=== PATIENT | male | born 1990 | race American Indian/Alaskan Native ===

== ENCOUNTER 2018-02-14 18:50 | Emergency (ER) | payer SELFPAY ==
[2018-02-14 21:06] LABS: BUN/Creatinine Ratio 10; Blood Urea Nitrogen 11 mg/dL (9-20); Calcium 9.9 mg/dL (8.4-10.2); Hemolysis Index 63
[2018-02-14 23:02] LABS: Basophils % (Auto) 0.7 % (0.0-1.8); Eosinophils # (Auto) 0.1 K/mm3 (0.0-0.4); Eosinophils % (Auto) 0.9 % (0.0-4.3); Hematocrit 49.3 % (35.5-45.6); Hemoglobin 17.1 gm/dl (11.8-15.2); Lymphocytes # (Auto) 2.1 K/mm3 (1.2-5.4); Lymphocytes % (Auto) 31.7 % (13.4-35.0); Mean Corpuscular HGB Conc 35 % (32-34); Mean Corpuscular Hemoglobin 31 pg (28-32); Mean Corpuscular Volume 89 fl (84-94); Monocytes # (Auto) 0.5 K/mm3 (0.0-0.8); Monocytes % (Auto) 6.9 % (0.0-7.3); Platelet Count 286 K/mm3 (140-440); Red Blood Count 5.52 M/mm3 (3.65-5.03); Red Cell Distribution Width 13.5 % (13.2-15.2)
[2018-02-15 03:09] LABS: Bilirubin,Urine NEG (Negative); Blood,Urine NEG (Negative); Color,Urine Yellow (Yellow); Mucus,Urine 1+ /HPF; Protein,Urine <15 mg/dL mg/dL (Negative)
--- NOTE | 2018-02-15 03:14 | Emergency Department Report ---
HPI - General Chief Complaint: Psych Time Seen by Provider: 02/15/18 02:34 - HPI HPI: 27-year-old Indonesian male presents to the emergency department after he was brought in by his significant other for a mental health evaluation. The patient himself is mostly nonverbal and barely will answer any questions. He appears to shake/nod his head in the affirmative when asked if he has a psychiatric history and he does the same and asked if he has any hallucinations. I spoke to his significant other, Ms. Schulz, who says that the patient has a history of bipolar disorder and schizophrenia and that he has been dealing with some acute psychosis. She says that even in the waiting room he seemed to think that one of the other patients waiting was G-d or some magical being. She says that he has been inpatient for psychiatric treatment at least one time in the past. He is not currently on any medications and when he was placed on them after his inpatient stay that they did not work for him. ED Past Medical Hx - Past Medical History Hx Psychiatric Treatment: Yes (Schizophrenia) - Surgical History Past Surgical History?: No - Social History Smoking Status: Current Every Day Smoker Substance Use Type: None, Marijuana ED Review of Systems ROS: Stated complaint: ALTERED MENTAL STATUS Other details as noted in HPI Comment: Unobtainable due to pts medical conditions Physical Exam - Physical Exam Vital Signs: Vital Signs 02/14/18 20:05 Temperature 99 F Pulse Rate 102 H Respiratory 16 Rate Blood Pressure 135/101 O2 Sat by Pulse 98 Oximetry Physical Exam: GENERAL: The patient is well-developed well-nourished. HENT: Normocephalic. Atraumatic. Patient has moist mucous membranes. EYES: Extraocular motions are intact. NECK: Supple. Trachea is midline. CHEST/LUNGS: Clear to auscultation. There is no respiratory distress noted. HEART/CARDIOVASCULAR: Regular. There is no tachycardia. There is no murmur. ABDOMEN: Abdomen is soft, nontender. Patient has normal bowel sounds. There is no abdominal distention. SKIN: Skin is warm and dry. NEURO: Patient is awake and able to give the year. He does not answer most of the questions asked and stares off unless redirected. MUSCULOSKELETAL: There is no tenderness or deformity. There is no limitation range of motion. There is no evidence of acute injury. PSYCH: Patient has a relatively flat affect. He is staring off unless he is asked a question and sometimes needs it asked multiple times or redirection. ED Course Vital Signs 02/14/18 20:05 Temperature 99 F Pulse Rate 102 H Respiratory 16 Rate Blood Pressure 135/101 O2 Sat by Pulse 98 Oximetry ED Medical Decision Making - Lab Data Result diagrams: 02/14/18 22:44 02/14/18 20:28 - Medical Decision Making The patient himself is a poor historian but does appear to be having some acute psychosis. His significant other gives more of a history of bipolar disorder and schizophrenia and says that he has been acting erratically over the past few weeks. She says that she has been witnessing some delusions and/or hallucinations. He is ambulatory throughout the emergency department and does not appear unstable. He is able to answer some questions appropriately like what year it is. He seems to have a pattern where he refuses things like giving blood, urine or changing into the green gown, but eventually he gives in. His labs are mostly unremarkable except for a urine drug screen positive for marijuana. His vital signs have been stable throughout his ED course. He was seen by the psych probate lawyer, Junito, who was not able to get much information from this patient but agrees that he appears to be displaying some signs of psychosis and is an appropriate candidate to be many 1013 for inpatient psychiatric treatment. The patient is medically cleared for psychiatric placement. - Differential Diagnosis bipolar disorder, schizophrenia, schizoaffective, substance abuse Critical Care Time: No Critical care attestation.: If time is entered above; I have spent that time in minutes in the direct care of this critically ill patient, excluding procedure time. ED Disposition Clinical Impression: Acute psychosis Disposition: DC/TX-65 PSY HOSP/PSY UNIT Is pt being admited?: No Condition: Stable Referrals: PRIMARY CAREMD [Primary Care Provider] - 3-5 Days Time of Disposition: 04:22
[2018-02-15 03:15] LABS: Amphetamine Screen,Urine PRESUMPTIVE NEGATIVE; Benzodiazepines Screen,Urine PRESUMPTIVE NEGATIVE; Cocaine Screen,Urine PRESUMPTIVE NEGATIVE; Methadone Screen,Urine PRESUMPTIVE NEGATIVE; Opiate Screen,Urine PRESUMPTIVE NEGATIVE
[2018-02-15 03:59] LABS: Cannabinoid Screen,Urine PRESUMPTIVE POSITIVE
[2018-02-15] MEDS ORDERED: GEODON IM ONE (04:57)
[2018-02-15] MEDS ORDERED: ATIVAN IV ONE (07:55)
[2018-02-15] MEDS ORDERED: HALDOL ONE (08:00)
[2018-02-15] MEDS ORDERED: ATIVAN ONE (08:00)
[2018-02-15] MEDS ORDERED: HALDOL IM ONE (08:12)
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
[2018-02-15 16:03] LABS: Alanine Aminotransferase 20 units/L (7-56); Lipase 18 units/L (13-60)
--- NOTE | 2018-02-16 17:30 | Progress Note ---
Subjective - Reason for Consult Consult date: 02/16/18 Reason for consult: Psychiatric Follow-up Evaluation - Chief Complaint Chief complaint: Patient is a 27-year-old male who presents to the emergency department after he was brought in by his significant other for a mental health evaluation. Today the patient is calm, but disorganized during the assessment. He continues to not be able to answer most questions during the assessment. His responses are delayed. He reports depression, anxiety, and psychosis. Patient verbalizes that he feels possessed. However, he presents very guarded/evasive. Patient endorses decrease energy, appetite, and sleep as well as intermittent suicidal ideations without a plan. He denies HI and VH. Mental Status Exam - Vital signs Last Vital Signs Temp 98.1 F 02/16/18 12:09 Pulse 78 02/16/18 12:09 Resp 18 02/16/18 12:09 BP 129/97 02/16/18 12:09 Pulse Ox 99 02/16/18 12:09 - Exam Narrative exam: Mental Status Exam: General Appearance: Causally Dressed-hospital gown Eye Contact: Intermittent Orientation: Alert and oriented x 2 ( person, place) Attitude/Behavior: Evasive, guarded Sensorium: Distracted Psychomotor & Musculoskeletal Activity: Standing Mood: Anxious Affect: Constricted Speech/Language: Delayed and slow Thought Processes: Thought blocking Thought Content: Impoverished. Paranoid " I feel possessed" Perception: Patient is internally preoccupied Concentration/Attention: Impaired. Suicidal Ideations/Plan: Patient denies. + suicidal ideations without a plan Homicidal Ideations/Plan: Patient denies. " No." Judgment: Poor Insight: Poor Assessment and Plan Impression: Unspecified Psychosis. Today the patient is calm, but disorganized during the assessment. He endorses suicidal ideations without a plan and psychosis. Thought blocking noted. He denies HI and VH. The patient is positive for marijuana. DDx: Bipolar DO with psychosis, R/O Schizophrenia, R/O Schizoaffective DO, R/O Substance Induced Psychosis Recommendation/Plan: 1. Continue 1013 with placement to inpatient psychiatric services. 2. Continue Depakote 500 mg PO BID for mood once his labs results and Seroquel 200 mg PO HS for psychosis/mood. Attempted to discuss possible metabolic side effects of Seroquel with patient. 3. Will continue to monitor psychosis, mood, sleep, appetite, compliance, and side effects.
--- NOTE | 2018-02-17 13:16 | Progress Note ---
Subjective - Reason for Consult Consult date: 02/17/18 Reason for consult: Psychiatry Follow-up - Chief Complaint Chief complaint: "I hope I get better" 27-year-old Kittitian male presents to the emergency department after he was brought in by his significant other for a mental health evaluation. Today the patient is calm and cooperative during the assessment. He stated that his head is still "spinning" from something he cannot explain. He continue to have delayed responses to questions when asked, possibly responding to some type of stimuli. He rate his depression 7/10, with 10 being the worse. He denies SI/HI' s and VH's. He would not confirm or deny AH's. He denies any side effects of his medications. Mental Status Exam - Vital signs Last Vital Signs Temp 98.1 F 02/17/18 10:00 Pulse 101 H 02/17/18 10:00 Resp 18 02/17/18 10:00 BP 104/65 02/17/18 10:00 Pulse Ox 99 02/17/18 10:00 - Exam Narrative exam: MSE: Appearance: calm Behavior: regular eye contact Speech: regular rate and tone Mood: "okay, but depressed" Affect: flat Thought Process: circumstantial Thought Content: denies SI/HI's and VH's, paranoia, he want confirm or deny AH' s Motor Activity: ambulatory Cognition: A//O x 3 Insight: variable Judgment: variable Assessment and Plan Impression: Unspecified Psychosis. Today the patient is calm and cooperative during the assessment. The patient is positive for marijuana. DDx: Bipolar DO with psychosis, R/O Schizophrenia, R/O Schizoaffective DO, R/O Substance Induced Psychosis Recommendation/Plan: Continue 1013 with placement to inpatient psy services. Continue Depakote 500 mg PO BID for mood and Seroquel 200 mg PO HS for psychosis /mood. Discussed possible metabolic side effects of Seroquel with patient.
[2018-02-17] MEDS ORDERED: ATIVAN ONE (20:46)
[2018-02-17] MEDS ORDERED: ATIVAN IM ONE (20:51)
--- NOTE | 2018-02-18 12:26 | Progress Note ---
Subjective - Reason for Consult Consult date: 02/18/18 Reason for consult: Psychiatry Follow-up - Chief Complaint Chief complaint: "Hello" 27-year-old Kenyan male presents to the emergency department after he was brought in by his significant other for a mental health evaluation. Today the patient is calm and cooperative during the assessment. He stated that his depression has gotten better. He was asked about AH's, his answer was delayed by saying, "A little better." He denies SI/HI's and VH's. No indications of side effects of his medications. Mental Status Exam - Vital signs Last Vital Signs Temp 97.8 F 02/18/18 02:08 Pulse 88 02/18/18 02:08 Resp 20 02/18/18 02:09 BP 130/75 02/18/18 02:08 Pulse Ox 100 02/18/18 02:09 - Exam Narrative exam: MSE: Appearance: calm, cooperative Behavior: regular eye contact Speech: regular rate and tone Mood: "okay" Affect: flat Thought Process: circumstantial Thought Content: denies SI/HI's and VH's, he want confirm or deny AH's Motor Activity: ambulatory Cognition: A//O x 3 Insight: variable Judgment: variable Assessment and Plan Impression: Unspecified Psychosis. Today the patient is calm and cooperative during the assessment. The patient is positive for marijuana. DDx: Bipolar DO with psychosis, R/O Schizophrenia, R/O Schizoaffective DO, R/O Substance Induced Psychosis Recommendation/Plan: Continue 1013 with placement to inpatient psy services. Continue Depakote 500 mg PO BID for mood and Seroquel 200 mg PO HS for psychosis /mood. Discussed possible metabolic side effects of Seroquel with patient.
[2018-02-18] MEDS ORDERED: WATER FOR INJ (PF) ONE ×2 (15:44→16:02)
[2018-02-18] MEDS ORDERED: GEODON IM ONE ×2 (15:44→16:35)
--- NOTE | 2018-02-18 16:19 | Emergency Department Report ---
Blank Doc - Documentation Documentation: Patient is psych patient here in the emergency department awaiting placement for suicidal ideations. Patient was noted on the camera to have otitis sheet around his neck and tried to look this up onto the bed in order to hang himself. Patient was stopped. Patient was given 20 of Geodon for medical restraint and the patient was placed in seclusion. [id number] by me was done.
--- NOTE | 2018-02-19 19:25 | Progress Note ---
Subjective - Reason for Consult Consult date: 02/19/18 Reason for consult: Psychiatric Follow-up Evaluation - Chief Complaint Chief complaint: " My mood is a 7" Patient is a 27-year-old male who presents to the emergency department after he was brought in by his significant other for a mental health evaluation. Today the patient is calm and cooperative during the assessment. He stated that his depression has gotten better. He reports good sleep and appetite. He denies SI/HI, A/VH, and delusions. He reports medication compliance. He denies side effects of medications. Mental Status Exam - Vital signs Last Vital Signs Temp 97.9 F 02/19/18 11:00 Pulse 90 02/19/18 11:00 Resp 18 02/19/18 11:00 BP 114/78 02/19/18 11:00 Pulse Ox 99 02/19/18 11:00 - Exam Narrative exam: Mental Status Exam: General Appearance: Causally Dressed-hospital gown Eye Contact: Intermittent Orientation: Alert and oriented x 4 ( person, place, time, and situation) Attitude/Behavior: Cooperative Sensorium: Clear Psychomotor & Musculoskeletal Activity: Laying in bed Mood: " my mood is a 7" Affect: Constricted, flat Speech/Language: Regular rate and tone Thought Processes: Circumstantial Thought Content: Impoverished. Patient denies delusions. Perception: Patient denies A/V/T hallucinations Concentration/Attention: Impaired. Suicidal Ideations/Plan: Patient denies "No." Homicidal Ideations/Plan: Patient denies. " No." Judgment: Variable Insight: Variable Assessment and Plan Impression: Unspecified Psychosis. Today the patient is calm and cooperative during the assessment. He denies SI/HI, A/VH, and delusions. The patient is positive for marijuana. DDx: Bipolar DO with psychosis, R/O Schizophrenia, R/O Schizoaffective DO, R/O Substance Induced Psychosis Recommendation/Plan: 1. Will rescind [address] Peña's request. 2. At the time of discharge patient is in no danger to self or others. He denies SI/HI, A/VH, and delusions. Discussed coping skills/follow-up appointments/medications. Patient verbalizes full understanding. 3. Patient will be provided with an outpatient referral. Patient will follow-up at the [facility]. 4. Continue Depakote 500 mg PO BID for mood and Seroquel 200 mg PO HS for psychosis/mood. Discussed possible metabolic side effects of Seroquel with patient. 5. In case of a psychiatric emergency, patient will call 911, report to the emergency room, or call the crisis line. Patient verbalizes full understanding.
[2018-02-19 19:59] VITALS: BP 118/86
--- NOTE | 2018-02-19 20:07 | Emergency Department Report ---
Blank Doc - Documentation Documentation: Patient to be discharged as 1013 confinement has been rescinded, patient is stable for outpatient, at [facility], to occur in the coming week. Patient is physically and mentally stable, calm and cooperative, and agrees with treatment plan.
--- NOTE | 2018-02-19 20:10 | Emergency Department Report ---
ED Disposition Clinical Impression: Acute psychosis Disposition: DC/TX-65 PSY HOSP/PSY UNIT Is pt being admited?: No Does the pt Need Aspirin: No Condition: Stable Additional Instructions: Follow with [facility] next week as recommended. Referrals: PRIMARY CARE, [Primary Care Provider] - 3-5 Days Time of Disposition: 20:10
== END 2018-02-19 21:54 ==
LOC: EEVIPCON 18:50 → ED 18:50
DX: F29 Unspecified psychosis not due to a substance or known physiological condition (principal); F12.10 Cannabis abuse, uncomplicated; F17.200 Nicotine dependence, unspecified, uncomplicated; F20.9 Schizophrenia, unspecified
CPT/HCPCS: 36415; 80048; 80164; 80307; 81001; 82150; 83690; 84075; 84450; 84460; 85025; 96372; 96374; 99284; G0480; J1630; J2060; J3486; 80320

== ENCOUNTER 2020-03-17 03:02 | Emergency (ER) | payer SELFPAY ==
[2020-03-17] MEDS ORDERED: ZIPRASIDONE MESYLATE 20 MG VIAL IM STA (03:41)
--- NOTE | 2020-03-17 03:46 | Emergency Department Report ---
<SMITH CASTILLO - Last Filed: 03/19/20 15:07> ED Psych HPI - General Chief Complaint: Psych Stated Complaint: MH EVAL Time Seen by Provider: 03/17/20 03:41 Source: patient, family, police, EMS Mode of arrival: Ambulatory - History of Present Illness Initial Comments: Mr. Angel is a 29 yo male with hx of schizophrenia who presents with abnormal behavior. Girlfriend had to coax patient to come to the ED via EMS. When patient and girlfriend arrived to the ED, Mr. 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 AFter two hours, he was finally convinced by nursing staff to physically let go of his girlfriend. Girlfriend truly wanted patient t o obtain mental health evaluation and treatment. He has not taken psychotropic medications in over 2 years. He reports insomnia, suicidal ideation and auditory hallucinations. He does use marijuana. He has once been told that he had elevated blood sugar. MD Complaint: suicidal ideation, other (insomnia, auditory hallucinations) -: Gradual, unknown Associated Psychiatric Symptoms: suicidal ideation, racing thoughts, auditory hallucinations History of same: Yes Quality: constant Improves With: none Worsens With: none Context: not taking psychiatric Associated Symptoms: insomnia Treatments Prior to Arrival: none If Self Harm: admits thoughts of - Related Data Previous Rx's Medication Instructions Recorded Last Taken Type Divalproex Dr Tessie ESCOTO] 250 mg PO BID #60 tablet 03/21/20 Unknown Rx risperiDONE [RisperDAL] 1 mg PO BID #60 tablet 03/21/20 Unknown Rx traZODone [Desyrel] 50 mg PO QHS #30 tab 03/21/20 Unknown Rx Allergies Allergy/AdvReac Type Severity Reaction Status Date / Time No Known Allergies Allergy Unverified 02/14/18 20:15 ED Review of Systems Comment: All other systems reviewed and negative Constitutional: denies: fever, malaise Respiratory: denies: SOB with exertion Cardiovascular: denies: chest pain Gastrointestinal: denies: abdominal pain, nausea, vomiting ED Past Medical Hx - Past Medical History Previous Medical History?: Yes Hx Psychiatric Treatment: Yes (Schizophrenia) - Surgical History Past Surgical History?: No - Social History Smoking Status: Current Every Day Smoker Substance Use Type: Marijuana - Medications Home Medications: Home Medications Medication Instructions Recorded Confirmed Last Taken Type Divsandiproex Dr Tessie ESCOTO] 250 mg PO BID #60 tablet 03/21/20 Unknown Rx risperiDONE [RisperDAL] 1 mg PO BID #60 tablet 03/21/20 Unknown Rx traZODone [Desyrel] 50 mg PO QHS #30 tab 03/21/20 Unknown Rx ED Physical Exam - General Limitations: No Limitations General appearance: alert, in no apparent distress, other (calm, cooperative) - Head Head exam: Present: atraumatic, normocephalic - Eye Eye exam: Present: normal appearance - ENT ENT exam: Present: mucous membranes moist - Neck Neck exam: Present: normal inspection, full ROM - Respiratory Respiratory exam: Present: normal lung sounds bilaterally. Absent: respiratory distress, wheezes, rales, rhonchi - Cardiovascular Cardiovascular Exam: Present: regular rate, normal rhythm, normal heart sounds. Absent: systolic murmur, diastolic murmur, rubs, gallop - GI/Abdominal GI/Abdominal exam: Present: soft, normal bowel sounds. Absent: distended, tenderness, guarding, rebound - Rectal Rectal exam: Present: deferred - Extremities Exam Extremities exam: Present: normal inspection - Neurological Exam Neurological exam: Present: alert, oriented X3 - Psychiatric Psychiatric exam: Present: depressed, flat affect, suicidal ideation - Skin Skin exam: Present: warm, dry, intact, normal color. Absent: rash ED Medical Decision Making - Lab Data Result diagrams: 03/17/20 03:40 03/17/20 03:40 - Medical Decision Making Mr. Angel has hx of schizophrenia. Currently not receiving mental health care. He requires involuntary hold and stabilization for aggressive, impulsive behavior toward girlfriend. Mr. Angel is medically clear for psychiatric care. I have reviewed labs obtained CBC chemistry serum toxicology urinalysis all within normal limits ED Disposition Clinical Impression: Schizophrenia Disposition: DC-01 TO HOME OR SELFCARE Condition: Stable Additional Instructions: Professional and Agency Contacts To help [facility](08/02) [place] Crisis Line: Suicide Prevention Line: Crisis Text Line: Text START to 519190 Emergency: 911 Outpatient COMMUNITY Behavioral Health Resources: [facility]: [facility] [address], [place] [address] [facility]: [facility] - [address] [place] [address] Wednesday thru Wednesday - 8am - 5pm [facility] Address: [address] [place] [address] Wednesday thru Wednesday- 7am-2pm [facility] Address: [address] [place] [address] Wednesday thru Wednesday: 8:30AM-5PM Phone: [phone] Prescriptions: traZODone [Desyrel] 50 mg PO QHS #[address] [DepaKOTE DR] 250 mg PO BID #60 tablet risperiDONE [RisperDAL] 1 mg PO BID #60 tablet Referrals: KANG MCCAULEYBRISTOL MD JUAN [Primary Care Provider] - 3-5 Days <NEELAM ROBINS - Last Filed: 03/21/20 10:10> ED Review of Systems ROS: Stated complaint: MH EVAL Other details as noted in HPI ED Course Vital Signs 03/17/20 03/17/20 03/17/20 03:21 03:25 10:12 Temperature 98.4 F 98.6 F Pulse Rate 84 87 Respiratory 20 18 19 Rate Blood Pressure 144/100 Blood Pressure 114/78 [Left] O2 Sat by Pulse 100 Oximetry 03/17/20 03/17/20 03/18/20 20:11 20:32 09:06 Temperature 98.4 F 98.3 F Pulse Rate 78 85 Respiratory 14 14 20 Rate Blood Pressure 98/59 Blood Pressure 124/77 [Left] O2 Sat by Pulse 95 98 97 Oximetry 03/18/20 03/18/20 03/19/20 20:00 20:40 02:04 Temperature 98.6 F 98.6 F Pulse Rate 98 H 98 H Respiratory 18 18 18 Rate Blood Pressure Blood Pressure 130/85 122/75 [Left] O2 Sat by Pulse 98 99 99 Oximetry 03/19/20 03/19/20 03/19/20 08:09 08:11 20:10 Temperature 98.7 F 98.9 F Pulse Rate 80 72 Respiratory 18 18 18 Rate Blood Pressure Blood Pressure 127/86 129/89 [Left] O2 Sat by Pulse 98 98 99 Oximetry 03/20/20 03/20/20 03/20/20 00:22 09:17 20:00 Temperature 98.9 F 98.4 F 98.8 F Pulse Rate 70 83 79 Respiratory 18 19 18 Rate Blood Pressure Blood Pressure 125/79 123/73 110/81 [Left] O2 Sat by Pulse 99 98 99 Oximetry 03/21/20 03/21/20 01:00 08:45 Temperature 97.9 F Pulse Rate 86 71 Respiratory 20 20 Rate Blood Pressure Blood Pressure 120/70 126/78 [Left] O2 Sat by Pulse 96 99 Oximetry ED Medical Decision Making - Lab Data Result diagrams: 03/17/20 03:40 03/17/20 03:40 - Medical Decision Making This patient originally presented to the emergency department for a mental healt h evaluation exhibiting some signs of acute psychosis secondary to his history of schizophrenia. The patient has been here for a little over 4 days and has been evaluated by the psychiatric team multiple times. He has been stabilized on medications. At this time the patient is awake, alert, oriented, calm and appropriate. He exhibits no signs of acute psychosis and denies any suicidal or homicidal ideations. The psychiatric team has rescinded his involuntary hold and is provided prescriptions for his medications and outpatient psychiatric referrals. The patient has been instructed to return to the emergency department with any worsening of his symptoms or with any acute distress. Critical care attestation.: If time is entered above; I have spent that time in minutes in the direct care of this critically ill patient, excluding procedure time. ED Disposition Is pt being admited?: No Time of Disposition: 10:10
[2020-03-17 04:33] LABS: Bilirubin,Urine NEG (Negative); Blood,Urine NEG (Negative); Color,Urine Yellow (Yellow); Mucus,Urine 1+ /HPF
[2020-03-17 04:39] LABS: Basophils % (Auto) 0.7 % (0.0-1.8); Eosinophils % (Auto) 0.2 % (0.0-4.3); Hematocrit 45.1 % (35.5-45.6); Hemoglobin 15.2 gm/dl (11.8-15.2); Lymphocytes # (Auto) 0.9 K/mm3 (1.2-5.4); Lymphocytes % (Auto) 15.2 % (13.4-35.0); Mean Corpuscular HGB Conc 34 % (32-34); Mean Corpuscular Volume 90 fl (84-94); Monocytes # (Auto) 0.3 K/mm3 (0.0-0.8); Monocytes % (Auto) 4.7 % (0.0-7.3); Platelet Count 257 K/mm3 (140-440); Red Blood Count 5.03 M/mm3 (3.65-5.03); Red Cell Distribution Width 13.5 % (13.2-15.2)
[2020-03-17 04:41] LABS: BUN/Creatinine Ratio 6; Blood Urea Nitrogen 7 mg/dL (9-20); Calcium 9.6 mg/dL (8.4-10.2); Hemolysis Index 22
[2020-03-17 05:01] LABS: Amphetamine Screen,Urine PRESUMPTIVE NEGATIVE; Benzodiazepines Screen,Urine PRESUMPTIVE NEGATIVE; Cannabinoid Screen,Urine PRESUMPTIVE POSITIVE; Cocaine Screen,Urine PRESUMPTIVE NEGATIVE; Methadone Screen,Urine PRESUMPTIVE NEGATIVE; Opiate Screen,Urine PRESUMPTIVE NEGATIVE
[2020-03-17] MEDS ORDERED: ZIPRASIDONE MESYLATE 20 MG VIAL IM ONE ×2 (13:33→13:40)
[2020-03-17] MEDS ORDERED: ALPRAZolam 0.5 MG TAB PO ONE (22:55)
[2020-03-17] MEDS ORDERED: ALPRAZolam 0.5 MG TAB PO PRN (22:56)
[2020-03-18] MEDS ORDERED: LORazepam 1 MG TAB PO ONE (05:22)
[2020-03-18] MEDS ORDERED: LORazepam 1 MG TAB ONE (05:25)
--- NOTE | 2020-03-18 13:17 | Consultation ---
History of Present Illness - Reason for Consult Consult date: 03/18/20 Reason for consult: Si, hallucinations - History of Present Psychiatric Illness The patient's medical record was reviewed and the patient's progress was discussed with the nursing staff. The nurse note states the patient was medicated however he still walking up to the door frame and just standing there. I asked patient was there anything I could get for him and he stated " Is there a problem with me standing here?" I asked pt to have a seat on the bed or senior linux unix engineer the room. Patient is currently standing in the room. Vasu Angel is a 29 year old male patient who was brought to the ER by EMS after his girlfriend wanted him to get an evaluation. 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 He let her go after 2 hours, according to medical record. During my interview the patient was in his room watching t.v. He is a/o x 3. He is calm and cooperative. He appears indecisive with some of his answers. He says he feels "okay." The patient says he was diagnosed with "schizophrenia," and states he's "been off of his meds for over a year." He says "I get like this when I'm off my meds." When asking the patient was he having any hallucinations. He paused for a minute, and then stated "not at the moment." He says "I wasn't getting no sleep and that makes me like this too." When asked about suicidal thoughts, the patient paused again. He then says, "I don't think I am at the moment." The patient says he smokes "weed" sometimes. He denies any other illicit drug use or alcohol. He says he had one suicide attempt in the past "2 years ago." The patient gave me permission to speak with his girlfriend. I called her from my personal cell phone and spoke to her on speaker phone with the patient. The patient's girlfriend says that she's a little fearful from what happened yesterday. She says the patient has never hurt her but he has been off his medications for a long time. PAST PSYCHIATRIC HISTORY Diagnoses: schizophrenia Suicide attempts or Self-harm behavior: Once Prior psychiatric hospitalizations: two Substance Abuse history: [facility] Previous psychiatric medications tried: Could not recall Outpatient treatment: Not recently PAST MEDICAL HISTORY: None reported Family Psychiatric History: None reported SOCIAL HISTORY Marital Status: Single Living Arrangements: with girlfriend Employment Status: Unemployed Access to guns/weapons: Denies Education: High school graduate History of Abuse: Denies Legal History: Denies REVIEW OF SYSTEMS Constitutional: Negative for weight loss ENT: Negative for stridor Respiratory: Negative for cough or hemoptysis All other systems reviewed and are negative MENTAL STATUS EXAMINATION General Appearance: Dressed appropriately Behavior: Calm, cooperative, appears distracted at times Mood: "okay" Affect and affective range: Congruent with stated mood Speech: Normal volume, Regular rate and rhythm Thought Process: Responding to internal stimuli Thought Content: Suicidal Ideation: Possibly passive Homicidal Ideation: Denies Hallucinations: Auditory Delusions: None elicited Insight and Judgment: Limited Memory/Cognition: Normal Attention: Normal, Assessment Schizophrenia TREATMENT PLAN Start Risperidone 0.25mg po BID Start Trazodone 50mg po qhs Risks, benefits and alternatives of medications discussed with the patient, questions answered and consent obtained from patient. PSYCHOTHERAPY: Supportive psychotherapy provided MEDICAL: Per primary team DELIRIUM PRECAUTIONS: Please re-orient patient frequently, keep lights on during the day, and minimize benzodiazepines and opiates as these medications could worsen patient's confusion. SUPERVISOR MODERN LANGUAGES: Defer to primary DISPOSITION: Recommend acute inpatient psychiatric hospitalization at this time LEGAL STATUS: 1013 FOLLOW-UP: Will follow Thank you for the consult. Please contact with any questions and/or concerns. Medications and Allergies Allergies Allergy/AdvReac Type Severity Reaction Status Date / Time No Known Allergies Allergy Unverified 02/14/18 20:15 Active Meds: Active Medications Alprazolam (Xanax) 0.5 mg PO Q6HR PRN PRN Reason: Agitation Mental Status Exam - Vital signs Last Vital Signs Temp 98.3 F 03/18/20 09:06 Pulse 85 03/18/20 09:06 Resp 20 03/18/20 09:06 BP 124/77 03/18/20 09:06 Pulse Ox 97 03/18/20 09:06 Results Result Diagrams: 03/17/20 03:40 03/17/20 03:40 All other labs normal.
[2020-03-18] MEDS: risperiDONE 0.25 MG TAB PO SCH ×3 (15:46→22:48)
[2020-03-18] MEDS: traZODone 50 MG TAB PO SCH ×2 (21:13→22:47)
--- NOTE | 2020-03-19 10:02 | Progress Note ---
Subjective - Reason for Consult Consult date: 03/19/20 Reason for consult: SI, hallucinations - Chief Complaint Chief complaint: The patient's medical record was reviewed and the patient's progress was discussed with the nursing staff. The nurse caring for the patient states the patient's behavior is odd. During my interview with the patient today, he is lying down. He is a/o x 3. The patient's behavior is odd. He is responding to internal stimuli. The patient is not forthcoming. He is indecisive and at times appears to be distracted. He appears to think before responding. The patient states he feels "a little bit better." He then says "ma'am, I'm good." When asked about any hallucinations, the patient pauses and looks as if he's thinking. He then replies "no." He then says, "here and there, but you want to know right now?" When asked was he sure, the patient stared at me and says "I mean, I hear your voice." The patient was redirected to the question, he then says "it's a bunch of noises, like saying and sh*t." He then says, "they say I'm going to ." The patient then says again, "ma'am, I'm good. I told you I don't hear nothing but your voice." The patient denies SI/HI. He states "I'm not going to hurt myself or nobody." He did not recall the incident where he was holding his and would not release her. He looked at me as if surprised by it. REVIEW OF SYSTEMS Constitutional: Negative for weight loss ENT: Negative for stridor Respiratory: Negative for cough or hemoptysis All other systems reviewed and are negative MENTAL STATUS EXAMINATION General Appearance: Dressed appropriately Behavior: Calm, cooperative, appears distracted at times, not forthcoming, indecisive. Mood: "a little better, good" Affect and affective range: Congruent with stated mood Speech: Normal volume, Regular rate and rhythm Thought Process: Responding to internal stimuli, illogical Thought Content: Suicidal Ideation: Possibly passive Homicidal Ideation: Denies Hallucinations: Auditory Delusions: None elicited Insight and Judgment: Poor Memory/Cognition: Limited Attention: Distracted Assessment Schizophrenia TREATMENT PLAN Increased Risperidone 0.5mg po BID Start Depakote DR 125mg po BID Risks, benefits and alternatives of medications discussed with the patient, questions answered and consent obtained from patient. PSYCHOTHERAPY: Supportive psychotherapy provided MEDICAL: Per primary team DELIRIUM PRECAUTIONS: Please re-orient patient frequently, keep lights on during the day, and minimize benzodiazepines and opiates as these medications could worsen patient's confusion. GERIATRIC SOCIAL WORK PROFESSOR: Defer to primary DISPOSITION: Recommend acute inpatient psychiatric hospitalization at this time LEGAL STATUS: 1013 FOLLOW-UP: Will follow Thank you for the consult. Please contact with any questions and/or concerns. Mental Status Exam - Vital signs Last Vital Signs Temp 98.7 F 03/19/20 08:09 Pulse 80 03/19/20 08:09 Resp 18 03/19/20 08:11 BP 127/86 03/19/20 08:09 Pulse Ox 98 03/19/20 08:11
[2020-03-19] MEDS: risperiDONE 0.25 MG TAB PO SCH ×2 (10:57→22:14)
[2020-03-19] MEDS: DIVALPROEX DR 125 MG TAB PO SCH ×2 (10:57→22:13)
[2020-03-19] MEDS: traZODone 50 MG TAB PO SCH (22:13)
[2020-03-20] MEDS: DIVALPROEX DR 125 MG TAB PO SCH (09:37)
[2020-03-20] MEDS: risperiDONE 0.25 MG TAB PO SCH (09:37)
--- NOTE | 2020-03-20 10:22 | Progress Note ---
Subjective - Reason for Consult Consult date: 03/20/20 Reason for consult: SI - Chief Complaint Chief complaint: The patient's medical record was reviewed and the patient's progress was discussed with the nursing staff. During my interview with the patient today, he is lying down. He is a/o x 3. He appears distracted at times. He says he's "good." The patient verbalizes "hearing voices and seeing flashes of light. The patient denies SI/HI but states "voices keep saying . You ." REVIEW OF SYSTEMS Constitutional: Negative for weight loss ENT: Negative for stridor Respiratory: Negative for cough or hemoptysis All other systems reviewed and are negative MENTAL STATUS EXAMINATION General Appearance: Dressed appropriately Behavior: Calm, cooperative, appears distracted at times Mood: "good" Affect and affective range: Incongruent with stated mood, restricted Speech: Normal volume, Regular rate and rhythm Thought Process: Responding to internal stimuli, distracted Thought Content: Suicidal Ideation: passive Homicidal Ideation: Denies Hallucinations: Auditory Delusions: None elicited Insight and Judgment: Poor Memory/Cognition: Limited Attention: Distracted Assessment Schizophrenia TREATMENT PLAN Increased Risperidone 1mg po BID Start Depakote DR 250mg po BID Risks, benefits and alternatives of medications discussed with the patient, questions answered and consent obtained from patient. PSYCHOTHERAPY: Supportive psychotherapy provided MEDICAL: Per primary team DELIRIUM PRECAUTIONS: Please re-orient patient frequently, keep lights on during the day, and minimize benzodiazepines and opiates as these medications could worsen patient's confusion. CHEMICAL MAKER: Defer to primary DISPOSITION: Recommend acute inpatient psychiatric hospitalization at this time LEGAL STATUS: 1013 FOLLOW-UP: Will follow Thank you for the consult. Please contact with any questions and/or concerns. Mental Status Exam - Vital signs Last Vital Signs Temp 98.4 F 03/20/20 09:17 Pulse 83 03/20/20 09:17 Resp 19 03/20/20 09:17 BP 123/73 03/20/20 09:17 Pulse Ox 98 03/20/20 09:17
[2020-03-20] MEDS: traZODone 50 MG TAB PO SCH (22:01)
[2020-03-20] MEDS: risperiDONE 1 MG TAB PO SCH (22:01)
[2020-03-20] MEDS: DIVALPROEX DR 250 MG TAB PO SCH (22:01)
--- NOTE | 2020-03-21 08:15 | Progress Note ---
Subjective - Reason for Consult Consult date: 03/21/20 Reason for consult: paranoid - Chief Complaint Chief complaint: The patient's medical record was reviewed and the patient's progress was discussed with the nursing staff. The nurse taking care of the patient today, states that the patient has been calm and cooperative with no expressed thoughts of SI/HI or hallucinations. The sitter says the patient has not verbalized any harmful thoughts, and has been calm and cooperative. During my interview with the patient today, he is lying down. He is a/o x 3. The patient's thoughts are much clearer today. He is calm and cooperative. He is attentive. He denies SI/HI and hallucinations of any kind. The patient states, "no not hearing any voices or any thing." REVIEW OF SYSTEMS Constitutional: Negative for weight loss ENT: Negative for stridor Respiratory: Negative for cough or hemoptysis All other systems reviewed and are negative MENTAL STATUS EXAMINATION General Appearance: Dressed appropriately Behavior: Calm, cooperative, good eye contact Mood: "good" Affect and affective range: congruent with stated mood Speech: Normal volume, Regular rate Thought Process: Goal directed Thought Content: Suicidal Ideation: Denies Homicidal Ideation: Denies Hallucinations: Denies Delusions: None elicited Insight and Judgment: Poor Memory/Cognition: Limited Attention: Distracted Assessment Schizophrenia TREATMENT PLAN d/c 1013 Scripts Trazodone 50mg po qhs Depakote dr 250mg po BID Risperidone 1mg po BID Risks, benefits and alternatives of medications discussed with the patient, questions answered and consent obtained from patient. PSYCHOTHERAPY: Supportive psychotherapy provided MEDICAL: Per primary team DELIRIUM PRECAUTIONS: Please re-orient patient frequently, keep lights on during the day, and minimize benzodiazepines and opiates as these medications could worsen patient's confusion. POLYSOMNOGRAPHY TECHNICIAN: Defer to primary DISPOSITION: Do not meet criteria for acute inpatient psychiatric hospitalization at this time. The patient understands that if any thoughts of self harm or feelings of endangerment arise, the patient is to seek immediate assistance including but not limited to the crisis hotline, 911 and ER. The assess to give outpatient resources including cognitive behavioral therapy The patient to follow up with primary or psych in 7 to 14 days upon discharge The boom worker to further discuss safety plan Will sign off. Thank you for the consult. Please contact with any questions and/or concerns. Mental Status Exam - Vital signs Last Vital Signs Temp 97.9 F 03/21/20 01:00 Pulse 86 03/21/20 01:00 Resp 20 03/21/20 01:00 BP 120/70 03/21/20 01:00 Pulse Ox 96 03/21/20 01:00
[2020-03-21 08:46] VITALS: BP 126/78
[2020-03-21] MEDS: DIVALPROEX DR 250 MG TAB PO SCH (10:07)
[2020-03-21] MEDS: risperiDONE 1 MG TAB PO SCH (10:07)
== END 2020-03-21 12:00 | disposition home or self-care (01) ==
LOC: ED 03:02
DX: F23 Brief psychotic disorder (principal); F20.89 Other schizophrenia
CPT/HCPCS: 36415; 80048; 80307; 81001; 85025; 99285; J3486; 80320; G0480